=== PATIENT | male | born 1990 | race Caucasian/White ===

== ENCOUNTER 2016-08-09 21:02 | Emergency (ER) | payer BC ==
[2016-08-09 21:11] VITALS: BP 129/67; PULSE 72; RESP 18; TEMP 98
--- NOTE | 2016-08-09 21:58 | ED ---
Skin/Abscess/FB HPI - General Chief complaint: Skin/Abscess/Foreign Body Stated complaint: rt arm rash Time Seen by Provider: 08/09/16 21:43 Source: patient Mode of arrival: ambulatory Limitations: no limitations - History of Present Illness Initial comments: Patient is a 26-year-old male presenting to the emergency department with complaints of rash to his right forearm for 3 weeks. Patient also complains of itchy rash to his bilateral lower extremities. Patient states he was treated approximately 1 week ago with steroid cream from an urgent care provider site without relief. Patient denies chills, fevers, shortness of breath, nausea, vomiting, chest pain, abdominal pain, diarrhea or constipation. Patient denies new lotions, soaps, new detergents, new medications. Patient denies travel. - Related Data Previous Rx's Medication Instructions Recorded Permethrin 5% Cream [Elimite] 1 applic TOPICAL ONCE #1 tube 08/09/16 Allergies Allergy/AdvReac Type Severity Reaction Status Date / Time No Known Allergies Allergy Verified 08/09/16 21:11 Review of Systems ROS Statement: Those systems with pertinent positive or pertinent negative responses have been documented in the HPI. ROS Other: All systems not noted in ROS Statement are negative. Past Medical History Past Medical History: No Reported History History of Any Multi-Drug Resistant Organisms: None Reported Past Surgical History: No Surgical Hx Reported Past Psychological History: No Psychological Hx Reported Smoking Status: Never smoker Past Alcohol Use History: Occasional Past Drug Use History: None Reported General Exam - General Exam Comments Initial Comments: GENERAL: Pt awake and alert, well-appearing, well-nourished, and in no acute distress. HEAD: Atraumatic, normocephalic. EYES: Pupils equal, round, and reactive to light, extraocular movements intact, sclera anicteric, conjunctiva are normal. ENT: Oropharynx clear without exudates. Moist mucous membranes. No oral lesions noted. NECK:Normal range of motion, supple without lymphadenopathy. LUNGS: Breath sounds clear to auscultation bilaterally. No wheezes, rales, or rhonchi. HEART: Heart S1, S2, no S3 or S4. Regular rate and rhythm. No murmurs, rubs or gallops. ABDOMEN: Soft, nontender, nondistended, normoactive bowel sounds. No guarding, no rebound. No masses or organomegaly appreciated. MUSCULOSKELETAL: Normal ROM, no tenderness. Strength 5/5. EXTREMITIES: 2+ peripheral pulses. No edema. No calf tenderness. NEUROLOGICAL: Pt oriented x 3. No focal deficits noted. Strength and sensation grossly intact. PSYCH: Normal mood, normal affect. SKIN: Warm, dry. Papular rash noted to flexor elbow joint on right upper extremity without evidence of cellulitis. Papular rash noted to bilateral lower extremities without evidence of cellulitis. Limitations: no limitations Course Vital Signs 08/09/16 21:09 Temperature 98.0 F Pulse Rate 72 Respiratory 18 Rate Blood Pressure 129/67 O2 Sat by Pulse 99 Oximetry Medical Decision Making - Medical Decision Making Rash unspecified to right upper extremity and bilateral lower extremities suspect secondary to scabies. Patient prescribed topical cream. Patient instructed to follow-up with primary care physician. Patient agrees to treatment plan. Discharge instructions and return parameters reviewed. Disposition Clinical Impression: Rash Disposition: HOME SELF-CARE Condition: Good Instructions: Acute Rash (ED) Additional Instructions: Apply topical bacitracin to right forearm rash twice daily. Apply Permethrin cream from neck down to feet and leave on for 8 hours and rinse off in the morning. Repeat in 1 week. Follow-up with primary care physician. Please return to the emergency department with any new or worsening symptoms. Prescriptions: Permethrin 5% Cream [Elimite] 1 applic TOPICAL ONCE #1 tube Referrals: Regis Parker MD [Primary Care Provider] - 1-2 days Time of Disposition: 21:58
== END 2016-08-09 21:59 | disposition home or self-care (01) ==
LOC: EC 21:02
DX: R21 Rash and other nonspecific skin eruption (principal)
CPT/HCPCS: 99282

== ENCOUNTER 2016-09-04 02:17 | Emergency (ER) | payer BC ==
--- NOTE | 2016-09-04 03:34 | ED ---
Extremity Problem HPI - General Chief complaint: Extremity Problem,Nontraumatic Stated complaint: leg pain Time Seen by Provider: 09/04/16 03:24 Source: patient, RN notes reviewed, old records reviewed Mode of arrival: ambulatory Limitations: no limitations - History of Present Illness Initial comments: This is a 26 year old male chief complaint of right-sided lower calf pain for the past 2 days. 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 Patient reports that he noticed the pain to be worse over the past day. Denies any redness or swelling over the area. He states it is a nonsmoker. Denies any history of blood clots or abnormal blood disorders. Patient reports that the pain seems to be worse with flexion and extension of the foot and ankle. Denies any peripheral paresthesias. Denies any trauma to the area.Patient denies any recent fever, chills, shortness of breath, chest pain, back pain, abdominal pain, nausea vomiting, numbness or tingling, dysuria or hematuria, constipation or diarrhea, headaches or visual changes, or any other current symptoms - Related Data Home Medications Medication Instructions Recorded Confirmed Cyclobenzaprine [Flexeril] 10 mg PO HS 09/04/16 09/04/16 Previous Rx's Medication Instructions Recorded Ibuprofen [Motrin] 600 mg PO Q8HR PRN #20 tab 09/04/16 Allergies Allergy/AdvReac Type Severity Reaction Status Date / Time No Known Allergies Allergy Verified 08/09/16 21:11 Review of Systems ROS Statement: Those systems with pertinent positive or pertinent negative responses have been documented in the HPI. ROS Other: All systems not noted in ROS Statement are negative. Past Medical History Past Medical History: No Reported History History of Any Multi-Drug Resistant Organisms: None Reported Past Surgical History: No Surgical Hx Reported Past Psychological History: No Psychological Hx Reported Smoking Status: Never smoker Past Alcohol Use History: Occasional Past Drug Use History: None Reported General Exam - General Exam Comments Initial Comments: Well-appearing 26-year-old male. No acute distress. Limitations: no limitations General appearance: alert, in no apparent distress Head exam: Present: atraumatic, normocephalic, normal inspection Eye exam: Present: normal appearance, PERRL, EOMI. Absent: scleral icterus, conjunctival injection, periorbital swelling ENT exam: Present: normal exam, mucous membranes moist Neck exam: Present: normal inspection. Absent: tenderness, meningismus, lymphadenopathy Respiratory exam: Present: normal lung sounds bilaterally. Absent: respiratory distress, wheezes, rales, rhonchi, stridor Cardiovascular Exam: Present: regular rate, normal rhythm, normal heart sounds. Absent: systolic murmur, diastolic murmur, rubs, gallop, clicks GI/Abdominal exam: Present: soft, normal bowel sounds. Absent: distended, tenderness, guarding, rebound, rigid Extremities exam: Present: normal inspection, full ROM, normal capillary refill. Absent: tenderness, pedal edema, joint swelling, calf tenderness Back exam: Present: normal inspection Neurological exam: Present: alert, oriented X3, CN II-XII intact Psychiatric exam: Present: normal affect, normal mood Skin exam: Present: warm, dry, intact, normal color. Absent: rash Course Vital Signs 09/04/16 09/04/16 02:36 03:41 Temperature 99.5 F 97.5 F L Pulse Rate 66 64 Respiratory 18 16 Rate Blood Pressure 128/79 120/54 O2 Sat by Pulse 100 98 Oximetry Medical Decision Making - Medical Decision Making This is a 26 year old male chief complaint of right-sided lower calf pain for the past 2 days. 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 Patient reports that he noticed the pain to be worse over the past day. Denies any redness or swelling over the area. He states it is a nonsmoker. Denies any history of blood clots or abnormal blood disorders. Patient reports that the pain seems to be worse with flexion and extension of the foot and ankle. Denies any peripheral paresthesias. Denies any trauma to the area. Patient has no evidence of erythema or swelling over the calf. He has full range of motion of the foot. He does appear to be somewhat tender over the proximal Achilles tendon. Patient was informed me that likely a tendinitis due to his work and going downstairs frequently. This disease rest, ice and elevate extremity. Discussed to monitor for any redness or swelling over the calf and then be more concerned for a possible blood clot. Patient agrees. Patient agrees to follow- up with primary care provider. Return parameters were discussed. Disposition Clinical Impression: Right Achilles tendinitis Disposition: HOME SELF-CARE Condition: Good Instructions: Achilles Tendinitis (ED) Additional Instructions: Patient advised to follow-up with her primary care provider. Rest, ice and elevate extremity. Patient denies a take anti-inflammatory medicine. Return to the emergency department if any alarming signs or symptoms occur including severe swelling or redness over the lower extremity. Prescriptions: Ibuprofen [Motrin] 600 mg PO Q8HR PRN #20 tab PRN Reason: Pain Referrals: Regis Parker MD [Primary Care Provider] - 1-2 days Time of Disposition: 03:32
[2016-09-04 03:42] VITALS: BP 120/54; PULSE 64; RESP 16; TEMP 97.5
== END 2016-09-04 03:41 | disposition home or self-care (01) ==
LOC: EC 02:17
DX: M76.61 Achilles tendinitis, right leg (principal); Z79.899 Other long term (current) drug therapy
CPT/HCPCS: 99283

== ENCOUNTER 2018-08-22 20:49 | Emergency (ER) | payer BC ==
[2018-08-22 21:01] VITALS: BP 116/78; PULSE 96; RESP 16; TEMP 98.7
[2018-08-22] MEDS ORDERED: ACETAMINOPHEN TAB 500 MG TAB PO STA (21:20)
--- NOTE | 2018-08-22 21:44 | XR ---
EXAMINATION TYPE: XR cervical spine comp DATE OF EXAM: 08/22/2018 COMPARISON: NONE HISTORY: Neck pain TECHNIQUE: 5 views FINDINGS: Cervical vertebra have normal spacing and alignment. Posterior elements are intact. Neural foramina are widely patent. Atlantoaxial facet joint is normal. There are no cervical ribs. IMPRESSION: Negative cervical spine exam.
--- NOTE | 2018-08-22 22:09 | ED ---
General Adult HPI - General Source: patient <Marv Jordan - Last Filed: 08/23/18 00:11> <Yecenia Pino P - Last Filed: 08/24/18 05:06> - General Chief complaint: Neck Pain/Injury Stated complaint: Neck Pain Time Seen by Provider: 08/22/18 21:01 - History of Present Illness Initial comments: Patient is a 28-year-old male presents emergency Department with left-sided neck pain. Patient reports waking up this morning with left-sided neck pain that radiates along the trapezius. Patient reports the pain is exacerbated with neck flexion and right rotation. Patient reports one to the urgent care this morning when he was prescribed Flexeril but states the pain has not improved. Patient denies any numbness or tingling in any of the upper or lower extremities. Patient denies focal neuro deficits. Patient reports equal strength bilaterally. Patient denies chest pain chest tightness nausea vomiting or diarrhea. She denies headaches or blurry vision. Patient reports the pain is alleviated in sitting position. Patient reports taking ibuprofen for pain control. Patient works a physically demanding job. (Marv Jordan) - Related Data Home Medications Medication Instructions Recorded Confirmed Cyclobenzaprine [Flexeril] 10 mg PO HS 09/04/16 09/04/16 Previous Rx's Medication Instructions Recorded Ibuprofen [Motrin] 600 mg PO Q8HR PRN #20 tab 09/04/16 Allergies Allergy/AdvReac Type Severity Reaction Status Date / Time No Known Allergies Allergy Verified 08/09/16 21:11 Review of Systems ROS Other: All systems not noted in ROS Statement are negative. <Marv Jordan - Last Filed: 08/23/18 00:11> ROS Other: All systems not noted in ROS Statement are negative. <Yecenia Pino P - Last Filed: 08/24/18 05:06> ROS Statement: Those systems with pertinent positive or pertinent negative responses have been documented in the HPI. Past Medical History Past Medical History: No Reported History History of Any Multi-Drug Resistant Organisms: None Reported Past Surgical History: No Surgical Hx Reported Past Psychological History: No Psychological Hx Reported Smoking Status: Never smoker Past Alcohol Use History: Occasional Past Drug Use History: None Reported <Marv Jordan - Last Filed: 08/23/18 00:11> General Exam <Marv Jordan - Last Filed: 08/23/18 00:11> - General Exam Comments Initial Comments: General: Well-developed well-nourished distress HEENT: Normocephalic/atraumatic, PERLL, pharynx erythema, swallowing well, EAC no erythema, no exudates, TM clear, no cervical lymph nodes Neck: Supple, left paraspinal tenderness of cervical spine and trapezius, limited range of motion due to pain, pain exacerbated with neck flexion and right rotation. No lymph nodes noted ,trachea midline Chest/Lungs: Normal respirations, no signs of respiratory distress clear to auscultation bilaterally no wheezes, rales, rhonchi Cardiac: Regular rate and rhythm, normal S1-S2, no murmurs rubs or gallops Abdomen/GI: Soft nontender, bowel sounds equal or quadrant x4, no guarding, no rebound no CVA tenderness Musculoskeletal: Nontender, full range of motion, no edema, strength equal bilaterally Skin: Warmth, no rashes or lesions, no cyanosis or diaphoresis Neurologic: AAO x 3, CN 2-12 intact, Psychiatric: Mood and affect normal, judgment normal (Marv Jordan) Course Vital Signs 08/22/18 20:57 Temperature 98.7 F Pulse Rate 96 Respiratory 16 Rate Blood Pressure 116/78 O2 Sat by Pulse 96 Oximetry Medical Decision Making <Marv Jordan - Last Filed: 08/23/18 00:11> <Yecenia Pino - Last Filed: 08/24/18 05:06> - Medical Decision Making Patient is a 28-year-old male presents emergency Department with neck pain. X- ray of the cervical spine is negative for acute fractures or dislocations. Because the patient had already taken 800 mg of ibuprofen he will receive 1 g of Tylenol. Patient will be discharged with Tylenol 3 starter pack and advised not to take any of the medication until the following morning. Patient reports that he is seeing his primary care on Saturday and is only looking for symptomatic relief until then. At this point I suspect the tenderness to be musculoskeletal in nature. The patient is neurovascularly intact. Patient advised to follow-up with orthopedics. Advised the patient to maintain warm compresses area. Strict return parameters were thoroughly discussed with patient and his partner who is in agreement with the treatment plan. Case discussed with physician. (Marv Jordan) I was available for consultation in the emergency department. The history and physical exam were done by the midlevel provider. I was consulted for this patient's care. I reviewed the case with the midlevel provider and based on their presentation of the patient, I agree with the assessment, medical decision making and plan of care as documented. Chart was dictated using [employer] dictation software. Attempts were made to correct any dictation errors however some typographical errors may persist. (Yecenia Pino) Disposition Is patient prescribed a controlled substance at d/c from ED?: No Time of Disposition: 22:09 <Marv Jordan - Last Filed: 08/23/18 00:11> <Yecenia Pino - Last Filed: 08/24/18 05:06> Clinical Impression: Strain of neck muscle Disposition: HOME SELF-CARE Condition: Stable Instructions (If sedation given, give patient instructions): Cervical Sprain (ED) Additional Instructions: Please alternate between Tylenol and ibuprofen for pain control. Please follow with orthopedics. Please return to emergency department if symptoms worsen. Referrals: Regis Parker MD [Primary Care Provider] - 1-2 days Denny Rose DO [Doctor of Osteopathic Medicine] - 1-2 days
[2018-08-22] MEDS ORDERED: ACET/COD 300 MG/30 MG STARTER PACK 6 TAB BTL PO STA (22:26)
== END 2018-08-22 22:37 | disposition home or self-care (01) ==
LOC: EC 20:49
DX: S16.1XXA Strain of muscle, fascia and tendon at neck level, initial encounter (principal); Z79.899 Other long term (current) drug therapy; X50.0XXA Overexertion from strenuous movement or load, initial encounter; Y92.69 Other specified industrial and construction area as the place of occurrence of the external cause; Y99.0 Civilian activity done for income or pay
CPT/HCPCS: 72050; 99283